=== PATIENT | female | born 1990 | race Caucasian/White ===

== ENCOUNTER 2020-01-10 02:36 | Emergency (ER) | payer MEDICAID, SELFPAY ==
--- NOTE | ~2020-01-10 | XR_ITS ---
EXAMINATION: XR chest 2V DATE: 01/10/2020 03:30 INDICATION: Left chest pain. TECHNIQUE: Frontal and lateral views of the chest were obtained. COMPARISON: Chest single view 04/24/2019, chest CT 01/10/2020 FINDINGS: The chest demonstrates clear lungs without pneumonia, pleural effusion, or pneumothorax. Th e heart size is normal. IMPRESSION: 1. No acute cardiopulmonary disease. Reviewed, dictated and finalized at location A.
--- NOTE | ~2020-01-10 | CT_ITS ---
EXAMINATION: CTA chest PE protocol DATE: 01/10/2020 04:46 INDICATION: Chest pain. TECHNIQUE: Computed tomography angiography (CTA) of the chest was performed with 100 mL Omnipaque-350 intravenous contrast timed to evaluate the pulmonary arteries. Coronal maximum intensity projection 3D-reconstructions were created by the technologist. Automated exposure control and iterative reconst ruction technique were employed. The dose-length product was 313.62 mGy-cm. COMPARISON: None. FINDINGS: There is mild atelectasis bilaterally. No pleural effusion. The heart size is normal. No pe ricardial effusion. There is no pulmonary embolus. There is mild thoracic spondylosis. IMPRESSION: 1. No pulmonary embolus. Sensitivity is moderately decreased by motion artifact. Reviewed, dictated and finalized at location A. IMPRESSION: 1. No pulmonary embolus. Sensitivity is moderately decreased by motion artifact .
--- NOTE | 2020-01-10 02:44 | ED.GENADULT ---
HPI - General Adult General Chief complaint: Unspecified Stated complaint: back pain Time Seen by Provider: 01/10/20 02:43 History of Present Illness HPI narrative: Pt c/o left lateral chest wall, rib pain, started 3 hours waitstaff captain. Pt states her pain is worse with palpation, deep breaths and movement. Denies any injury. Denies sob. Denies fever. Related Data Home Medications Medication Instructions Recorded Confirmed PNV cmb#95-ferrous fumarate-FA 1 tablet PO DAILY 01/10/20 [] Allergies Allergy/AdvReac Type Severity Reaction Status Date / Time No Known Allergies Allergy Unknown Verified 04/24/19 17:32 Review of Systems Review of Systems: All systems reviewed & are unremarkable except as noted in HPI and below Constitutional: Constitutional: Denies body ache(s), Denies chills, Denies excessive sweating, Denies fatigue, Denies fever(s), Denies headache(s), Denies lethargy, Denies malaise, Denies weakness and Denies weight loss Eyes: Eyes: Denies blurry vision, Denies change in vision and Denies loss of vision ENT: Denies dizziness, Denies ear discharge, Denies headache(s), Denies lip swelling, Denies epistaxis, Denies nasal congestion, Denies neck pain, Denies throat swelling and Denies tongue swelling Cardiovascular: Cardiovascular: Denies chest pain, Denies chest pain at rest, Denies chest pain with activity, Denies diaphoresis, Denies rapid heart rate, Denies edema, Denies irregular heart rhythm, Denies lightheadedness, Denies palpitations, Denies dyspnea and Denies dyspnea on exertion Respiratory: Respiratory: Denies chest congestion, Denies cough, Denies hemoptysis, Denies dyspnea and Denies dyspnea on exertion Gastrointestinal: Gastrointestinal: Denies abdominal pain, Denies melena, Denies hematochezia, Denies diarrhea, Denies nausea, Denies vomiting and Denies hematemesis Musculoskeletal: Musculoskeletal: Denies abnormal gait, Denies deformity, Denies joint swelling, Denies limited range of motion, Denies neck pain and Denies numbness Neurologic: Denies Abnormal speech present, Denies abnormal gait, Denies confusion, Denies dizziness, Denies headache(s), Denies focal weakness, Denies loss of vision, Denies numbness, Denies Other visual disturbances, Denies Sensory deficit (Neuro) and Denies weakness Psychiatric: Psychiatric: Denies confusion, Denies depression, Denies auditory hallucinations, Denies homicidal ideation and Denies suicidal ideation Endocrine: Endocrine: Denies cold intolerance, Denies excessive sweating, Denies fatigue, Denies heat intolerance and Denies palpitations Hematologic/Lymphatic: Hematologic/Lymphatic: Denies easy bleeding and Denies easy bruising Allergic/Immunologic: Allergic/Immunologic: Denies lip swelling, Denies throat swelling and Denies tongue swelling [facility] Social History Social History (Updated 04/24/19 @ 18:01 by Salvador Ramires) Smoking status: Current every day smoker Gender identity (if verbalized by the patient): Female Exam Const: General: cooperative, healthy appearing, comfortable, no acute distress, well developed, alert and awake; No confusion Orientation/consciousness: oriented to person, oriented to place, oriented to time, patient oriented x3 and No confusion Limitations: no limitations HENMT: Head: normal to inspection, normocephalic and atraumatic Ears: hearing grossly normal bilaterally, TM normal on the right and TM normal on the left General nose exam: Normal external nose present, Normal nares present and No nasal discharge present Face and sinus: normal facial exam Mouth: Yes Normal oral and palatal mucosa present, Yes lip normal, Yes tongue normal and Yes oropharynx normal Throat: posterior oropharynx normal, tonsils normal and uvula midline Eyes: General: appearance normal, both eyes and all related structures Pupils: Equal, round and reactive pupils present EOM: EOMs intact bilaterally Neck: Neck: normal visual inspection, full ROM, no l
[2020-01-10 02:45] VITALS: BP 124/64; PULSE 108; RESP 20; TEMP 36.8; O2SAT 98
--- NOTE | 2020-01-10 02:54 | ECG_ITS ---
Measurements Intervals [place] Rate: 101 P: 54 LA: 151 QRS: 21 QRSD: 85 T: 12 QT: 341 QTc: 444 Interpretive Statements SINUS TACHYCARDIA POSSIBLE LEFT ATRIAL ENLARGEMENT BORDERLINE ST ABNORMALITY- ANT/INF LEADS BORDERLINE ECG Electronically Signed On 01-10-2020 6:43:51 CDT by Nabor Hinojosa D.O.
[2020-01-10 02:55] VITALS: RESP 20; O2SAT 98
--- NOTE | 2020-01-10 03:12 | PC.NURSE ---
PT REQUESTING ULTRASOUND OF HER BABY AT THIS TIME; EDP MADE AWARE.
[2020-01-10 03:20] LABS: Basophils Absolute Auto 0.1 K/mm3 (0.0-0.1); Basophils Percent Auto 0.4 % (0.2-1.2); Eosinophils Absolute Auto 0.2 K/mm3 (0-0.3); Eosinophils Percent Auto 1.2 % (0-4.4); Hematocrit 29.3 % (37.0-47.0); Hemoglobin 10.3 g/dL (12.0-15.0); Immature Granulocyte Absolute 0.12 K/mm3 (0.00-0.031); Immature Granulocyte Percent A 0.9 % (0-0.5); Lymphocytes Absolute Auto 3.22 K/mm3 (0.9-3.2); Lymphocytes Percent Auto 24.8 % (18.3-44.2); Mean Corpuscular HGB Conc 35.2 g/dl (32-36); Mean Corpuscular Hemoglobin 32.2 pg (26-34); Mean Corpuscular Volume 91.6 fl (80-100); Mean Platelet Volume 10.6 fl (7.4-10.4); Monocytes Absolute Auto 0.8 K/mm3 (0.1-0.6); Monocytes Percent Auto 6.3 % (2.6-8.5); Neutrophils Absolute Auto 8.6 K/mm3 (1.3-6.7); Neutrophils Percent Auto 66.4 % (45.5-73.1); Platelet Count Result 264 k/mm3 (150-375); Red Cell Distribution Width 11.8 % (11.5-14.5)
[2020-01-10 03:25] LABS: Alanine Aminotransferase 11 U/L (4-35); Albumin Level 3.3 g/dL (3.5-5.1); Alkaline Phosphatase 64 U/L (38-126); Anion Gap 4 mmol/L (8-16); Aspartate Amino Transferase 20 U/L (14-36); Bilirubin,Total 0.4 mg/dL (0.2-1.3); Blood Urea Nitrogen 5 mg/dL (7-17); Calcium 8.8 mg/dL (8.4-10.2); Carbon Dioxide 21 mmol/L (22-30); Chloride 107 mmol/L (98-107); Estimated CRCL calculation 138 ml/min; Estimated Glomerular Filt Rate > 60; Glucose 151 mg/dL (65-105); Potassium 3.5 mmol/L (3.4-5.0); Sodium 132 mmol/L (137-145)
[2020-01-10 03:36] LABS: D Dimer 0.71 ug/mL (<0.48)
[2020-01-10] MEDS: SODIUM CHLORIDE 0.9% IV 1,000 ML 999 ML IV CONT (04:14)
[2020-01-10 05:52] VITALS: BP 103/62; PULSE 93; RESP 18; O2SAT 98
== END 2020-01-10 06:05 | disposition home or self-care (01) ==
PROVIDERS: Emergency Provider Emergency Medicine; PCP Obstetrics & Gynecology
DX: R09.1 Pleurisy (principal); R00.0 Tachycardia, unspecified; F17.210 Nicotine dependence, cigarettes, uncomplicated
CPT/HCPCS: 36415; 71046; 71275; 80053; 85025; 85380; 93005; 96360; 99284; J7030; Q9967

== ENCOUNTER 2020-01-10 13:11 | Observation (INO) | payer MEDICAID, SELFPAY ==
[2020-01-10] VITALS (20 sets, daily range): BP systolic 75–111; BP diastolic 46–74; PULSE 91–114; TEMP 36.6–36.9; O2SAT 97–100; BMI 24.3
--- NOTE | 2020-01-10 14:23 | P.HP_ITS ---
H&P: HPI History of Present Illness Date/Time: 01/10/20 14:23 pt is a 29 y.o. at 30 weeks gestation who pre sents with continued back/rib pain, all upper quadrant, feels like a burning pain. Flexeril and tylenol were not helpful and did not decrease the pain, pt currently having difficulty sitting up for exam. Pt was seen yesterday in the ED and CT and Xray of chest were negative, labs stable Chief complaint: Left side pain Narrative: Qing Mattson is a 29 year old female Review of Systems Review of Systems: All systems reviewed & are unremarkable except as noted in HPI and below PMFSH Social History Social History (Updated 04/24/19 @ 18:01 by Salvador Ramires) Smoking status: Current every day smoker Gender identity (if verbalized by the patient): Female Meds Home Medications and Allergies Home Medications Medication Instructions Recorded Confirmed Type PNV cmb#95-ferrous fumarate-FA 1 tablet PO DAILY 01/10/20 History [] Allergies Allergy/AdvReac Type Severity Reaction Status Date / Time No Known Allergies Allergy Unknown Verified 04/24/19 17:32 Vital Signs Vital Signs - 24 hr 01/10/20 13:27 01/10/20 13:30 01/10/20 13:45 Pulse Rate 107 H 114 H 109 H Blood Pressure 94/57 L 107/50 L 75/51 L Pulse Oximetry 01/10/20 13:49 01/10/20 13:50 01/10/20 13:54 Pulse Rate 102 H Blood Pressure 111/58 L Pulse Oximetry 98 99 01/10/20 13:59 01/10/20 14:00 01/10/20 14:04 Pulse Rate 105 H Blood Pressure 100/58 L Pulse Oximetry 98 98 01/10/20 14:09 01/10/20 14:14 01/10/20 14:19 Pulse Rate 106 H Blood Pressure 106/74 Pulse Oximetry 97 98 99 Exam Const: General: uncomfortable Eyes: General: appearance normal, both eyes and all related structures Resp: Effort & Inspection: normal respiratory effort GI: GI Palp: Yes Soft to palpation Skin: General skin exam: normal color Extrem: Other: pain in between ribs mid to upper back with examination, no mass or injury noted Psych: Mental Status: mental status grossly normal Assessment and Plan Additional Plan 1. suspect muscular pain rx xanax 0.5mg dose Discussed plan of care with Valerie Abdullahi and pt all questions answered
[2020-01-10] MEDS: ALPRAZolam (*CRX) 0.5 MG TABLET PO (14:41)
--- NOTE | 2020-01-10 15:27 | OBADM ---
This patient, Qing Mattson, admitted to the OB room OB Post 117 for observation. Patient oriented to hospital policies and general routines including ID bracelet, bed and alarms, visiting hours, pain management, procedures, bathroom and other care routines, personal items, smoking policy, room service/diet, and visiting hours. Patient are encouraged to report perceived risks to care and to ask questions if they do not understand what they are told or what they should do.
--- NOTE | 2020-01-11 01:18 | PC.NURSE ---
2130 Patient states that at rest pain is gone. States pain is 2-3 with movement. States K pad has helped pain improved.
== END 2020-01-10 22:00 | disposition home or self-care (01) ==
PROVIDERS: Admitting Provider Obstetrics & Gynecology; PCP Obstetrics & Gynecology; Visit Provider Obstetrics & Gynecology
DX: O26.93 Pregnancy related conditions, unspecified, third trimester (principal); R10.12 Left upper quadrant pain; R10.11 Right upper quadrant pain; M54.9 Dorsalgia, unspecified; O99.333 Smoking (tobacco) complicating pregnancy, third trimester; Z3A.30 30 weeks gestation of pregnancy
CPT/HCPCS: 71046; 71275; 80053; 85025; 85380; 93005; 96360; 99284; A9270; G0378; G0379; J7030; Q9967

== ENCOUNTER 2020-02-10 23:20 | Observation (INO) | payer OTHER, SELFPAY ==
[2020-02-10 23:40] VITALS: BP 108/60; PULSE 107
[2020-02-11 00:28] LABS: Add Urine Microscopic? NO; Appearance Urine Clear (Clear); Bilirubin Urine Negative (Negative); Blood Urine Negative (Negative); Color Urine Straw (Yellow); Glucose Urine UA Negative (Negative); Ketones Urine Negative (Negative); Leukocyte Esterase Ur Negative LEU/UL (Negative); Nitrate Urine Negative (Negative); Protein Urine Negative (Negative); Specific Grav Ur 1.008 (1.001-1.035); Urobilinogen Urine Negative mg/dL (<2.0)
--- NOTE | 2020-03-08 08:28 | P.PNOB_ITS ---
OB - Triage/Final Diagnosis Evaluation Laboratory results: Laboratory Tests 02/11/20 00:21 Urine Color Straw Urine Appearance Clear Urine pH 6.0 Ur Specific [place] 1.008 Urine Protein Negative Urine Glucose (UA) Negative Urine Ketones Negative Ur Blood (Man) Negative Urine Nitrate Negative Urine Bilirubin Negative Urine Urobilinogen Negative Leukocyte Esterase Rfl Negative Final Diagnosis (1) False labor: Code(s): O47.9 - False labor, unspecified Status: Acute
== END 2020-02-11 00:45 | disposition home or self-care (01) ==
PROVIDERS: Admitting Provider Obstetrics & Gynecology; Visit Provider Obstetrics & Gynecology
DX: O47.9 False labor, unspecified (principal); Z3A.00 Weeks of gestation of pregnancy not specified
CPT/HCPCS: 81003; 84112; G0378; G0379

== ENCOUNTER 2020-03-07 04:25 | Inpatient (IN) | payer OTHER, SELFPAY ==
[2020-03-07] VITALS (24 sets, daily range): BP systolic 100–137; BP diastolic 47–72; PULSE 70–118; RESP 16–18; TEMP 36.6–36.8; O2SAT 95–99; BMI 25.7
--- NOTE | ~2020-03-07 | US_ITS ---
EXAMINATION: US OB limited w BPP DATE: 03/07/2020 07:36 INDICATION: Variable decelerations. Third trimester. TECHNIQUE: Real-time pelvic ultrasound was performed. COMPARISON: None. FINDINGS: There is a single living fetus in vertex presentation. The placenta is anterior. heart rate is 163 beats per minute (bpm). The amniotic fluid index is 10.6 cm, which is normal. Biophysical profile performed by the technologist: breathing (30 sec sustained breathing in 30 minutes): 2 out of 2 movement (3 gross body movements in 30 minutes): 2 out of 2 tone (one episode of rvbyazg-[id number]-kaavyma limb movement): 2 out of 2 Amniotic fluid pocket (2 cm): 2 out of 2 Total score: 8 out of 8 IMPRESSION: 1. Single living fetus in vertex presentation. 2. Biophysical profile 8 out of 8. Reviewed, dictated and finalized at location A. AGENT
--- NOTE | 2020-03-07 04:49 | OBADM ---
This patient, Qing Mattson, admitted to the OB room Labor/Delivery/Recovery 105 for observation. Patient/family oriented to hospital policies and general routines including ID bracelet, bed and alarms, visiting hours, pain management, procedures, bathroom and other care routines, personal items, smoking policy, room service/diet, and visiting hours. Patient/Family are encouraged to report perceived risks to care and to ask questions if they do not understand what they are told or what they should do.
[2020-03-07] MEDS: OXYTOCIN 30 UNITS/NS 500 ML 30 UNITS/500 ML BAG IV CONT (11:10)
[2020-03-07] MEDS: LACTATED RINGERS 1,000 ML 125 ML IV CONT (11:11)
[2020-03-07 11:20] LABS: Basophils Absolute Auto 0.1 K/mm3 (0.0-0.1); Basophils Percent Auto 0.4 % (0.2-1.2); Eosinophils Absolute Auto 0.1 K/mm3 (0-0.3); Hematocrit 35.1 % (37.0-47.0); Hemoglobin 11.6 g/dL (12.0-15.0); Immature Granulocyte Absolute 0.17 K/mm3 (0.00-0.031); Immature Granulocyte Percent A 1.3 % (0-0.5); Lymphocytes Absolute Auto 3.32 K/mm3 (0.9-3.2); Lymphocytes Percent Auto 24.4 % (18.3-44.2); Mean Corpuscular Hemoglobin 30.1 pg (26-34); Mean Corpuscular Volume 90.9 fl (80-100); Monocytes Absolute Auto 0.9 K/mm3 (0.1-0.6); Monocytes Percent Auto 6.3 % (2.6-8.5); Neutrophils Absolute Auto 9.1 K/mm3 (1.3-6.7); Neutrophils Percent Auto 66.6 % (45.5-73.1); Platelet Count Result 366 k/mm3 (150-375); Red Blood Count 3.86 M/mm3 (4.2-5.4); Red Cell Distribution Width 13.9 % (11.5-14.5); White Blood Count 13.6 K/mm3 (4.5-10.0)
--- NOTE | 2020-03-07 11:22 | LDADM ---
This patient, Qing Mattson, was admitted to Labor/Delivery/Recovery 105 on 03/07/20 at 09:30. Plans for labor, pain management and were discussed with patient. Patient/family oriented to hospital policies and general routines including ID bracelet, bed and alarms, visiting hours, pain management, procedures, bathroom and other care routines, personal items, smoking policy, room service/diet and guest tray routines, infant security routines, and visiting hours. Patient/Family are encouraged to report perceived risks to care and to ask questions if they do not understand what they are told or what they should do. See OBIX for further documentation.
--- NOTE | 2020-03-07 13:25 | WPDOBADMIT ---
Obstetrics - Admit Note Admission Note: Pt staying for augmentation of labor d/t fhr decelerations. record reviewed. No pertinent additions to the history and/or any subsequent changes in the physical findings that are not consistent with the expected course of the were found. Additions to the history and/or subsequent changes in the physical findings follow. None.
--- NOTE | 2020-03-07 13:27 | PM.OBPRVD ---
OB - Delivery Note Procedure Delivery date: 03/07/20 Intrapartal events: None Delivery augmentation: pitocin Delivery monitor: external FHT and external uterine Route of delivery: Episiotomy description: None Laceration Description: None Estimated blood loss (mL): 187 Anesthesia type: None Baby Date of : 03/07/20 Time of : 13:11 Weeks of gestation at delivery: 38 Infant gender: Female position: Right Occiput Anterior cord vessel description: Delayed Cord Clamping Narrative: Cord gasses collected and handed off to staff.
[2020-03-07] MEDS: HYDROcodone/acetaminophen (*CRX) 5-325 MG TABLET 1 TAB PO ×2 (14:10→18:02)
[2020-03-07] MEDS: WITCH HAZEL 40 PADS 1 PAD TOPICAL (14:10)
[2020-03-07] MEDS: BENZOCAINE 20% AER SPR (*SP) 56 GM CAN 1 SPRAY TOPICAL (14:10)
[2020-03-07] MEDS: IBUPROFEN 600 MG TABLET PO (18:01)
[2020-03-07] MEDS: DOCUSATE SODIUM 100 MG CAPSULE PO (18:01)
--- NOTE | 2020-03-07 18:57 | PC.NURSE ---
1555 Pt admitted to room 278 per wheelchair from labor and delivery after spontaneous vaginal delivery of viable female infant at 1311 today with Xiomara ELIZALDE for Dr. Padilla. Mother is a and is choosing to bottle feed infant. FOB involved. Pt oriented to room, staffing and procedures; Admission folder reviewed. Pt's VSS and assessment WNL.
[2020-03-08 06:10] LABS: Hematocrit 32.5 % (37.0-47.0); Hemoglobin 10.7 g/dL (12.0-15.0)
--- NOTE | 2020-03-08 07:58 | PM.OBPNVD ---
OB - PN: Subj Subjective Date/time seen: 03/08/20 07:58 Patient comments: no complaints and pain well controlled feeding status: breast and bottle feeding OB - PN: Obj Data Labs CBC & Chem 7: 03/08/20 04:50 Labs: Laboratory Results - last 24 hr 03/07/20 03/07/20 03/08/20 11:15 11:15 04:50 WBC 13.6 H RBC 3.86 L Hgb 11.6 L 10.7 L Hct 35.1 L 32.5 L MCV 90.9 MCH 30.1 MCHC 33.0 RDW 13.9 Plt Count 366 MPV 10.0 Immature Gran % (Auto) 1.3 H Neut % (Auto) 66.6 Lymph % (Auto) 24.4 [place] % (Auto) 6.3 Eos % (Auto) 1.0 Baso % (Auto) 0.4 Lymph # (Auto) 3.32 H [place] # (Auto) 0.9 H Eos # (Auto) 0.1 Baso # (Auto) 0.1 Abs Immat Gran (auto) 0.17 H Absolute Neuts (auto) 9.1 H Absolute Nucleated RBC 0.0 Nucleated RBC % 0.0 Blood Type O Positive Antibody Screen Negative OB - PN A/P Plan day: 1 Plan: routine care and discharge home Time Spent With Patient Time: Total time spent is greater than 50% in coordination of care (as documented) at patient's floor/unit and/or counseling patient: Exam Const: General: cooperative Limitations: no limitations
--- NOTE | 2020-03-08 07:59 | PM.OBDSVD ---
DS: Admitting Diagnosis Admitting Diagnosis Admitting Diagnosis: Leaking, contractions OB - DS: Summary OB Procedures : None OB Procedures Intrapartum: Spontaneous Vag Delivery OB Procedures: : None Time Spent with Patient Time attestation: Total time spent providing and/or coordinating discharge services: DS: Data Data Completed and Pending Labs on day of discharge: Labs from last 24 hours 03/08/20 03/07/20 03/07/20 04:50 11:15 11:15 WBC RBC Hgb 10.7 L Hct 32.5 L MCV MCH MCHC RDW Plt Count MPV Immature Gran % (Auto) Neut % (Auto) Lymph % (Auto) [place] % (Auto) Eos % (Auto) Baso % (Auto) Lymph # (Auto) [place] # (Auto) Eos # (Auto) Baso # (Auto) Abs Immat Gran (auto) Absolute Neuts (auto) Absolute Nucleated RBC Nucleated RBC % RPR Pending Blood Type O Positive Antibody Screen Negative 03/07/20 11:15 WBC 13.6 H RBC 3.86 L Hgb 11.6 L Hct 35.1 L MCV 90.9 MCH 30.1 MCHC 33.0 RDW 13.9 Plt Count 366 MPV 10.0 Immature Gran % (Auto) 1.3 H Neut % (Auto) 66.6 Lymph % (Auto) 24.4 [place] % (Auto) 6.3 Eos % (Auto) 1.0 Baso % (Auto) 0.4 Lymph # (Auto) 3.32 H [place] # (Auto) 0.9 H Eos # (Auto) 0.1 Baso # (Auto) 0.1 Abs Immat Gran (auto) 0.17 H Absolute Neuts (auto) 9.1 H Absolute Nucleated RBC 0.0 Nucleated RBC % 0.0 RPR Blood Type Antibody Screen Discharge Plan Discharge Attending physician on discharge: Pato Padilla Discharging Clinician: Laura Goldstein Patient Disposition: Home, Self-Care Activity: pelvic rest Diet: regular Patient Instructions: Antibiotic Form Stand Alone Forms: General Discharge Information Follow-up/Referrals: Alia Eubanks CNM [Certified Nurse Mobile Battery Technician] - 4 Weeks Discharge Medications: Continued PNV cmb#95-ferrous fumarate-FA [] 28 mg iron- 800 mcg Tablet 1 tablet PO DAILY RF: 0 Date of admission: 03/07/20 09:30 Primary Care Provider: PHYSICIAN,DYE RANGE TENDER Admitting Provider: Pato Padilla Attending physician on admission: Pato Padilla Condition: Stable
[2020-03-08 08:18] LABS: Rapid Plasma Reagin Non-Reactive (NonReactive)
[2020-03-08 08:55] VITALS: BP 94/55; PULSE 92; RESP 16; TEMP 36.8; O2SAT 100
[2020-03-08] MEDS: HYDROcodone/acetaminophen (*CRX) 5-325 MG TABLET 1 TAB PO (09:17)
[2020-03-08] MEDS: IBUPROFEN 600 MG TABLET PO (09:17)
--- NOTE | 2020-03-08 12:00 | PC.NURSE ---
Patient received instructions on viewing the discharge video Mother & Baby Care, The First Two Weeks . Patient was given the opportunity and encouraged to ask questions. Patient verbalized understanding of information shared and has been given the mother/baby guide for home reference.
[2020-03-11 10:16] VITALS: BP 103/63; PULSE 89; RESP 14; TEMP 37.1; O2SAT 99
== END 2020-03-08 15:03 | disposition home or self-care (01) | DRG 560 ==
LOC: ANHLDR 11:09 → ANHOB2 16:09
PROVIDERS: Advanced Practice Midwife; Admitting Provider Obstetrics & Gynecology; Visit Provider Obstetrics & Gynecology
DX: O43.123 Velamentous insertion of umbilical cord, third trimester (principal); O69.81X0 Labor and delivery complicated by cord around neck, without compression, not applicable or unspecified; Z3A.38 38 weeks gestation of pregnancy; Z37.0 Single live birth
CPT/HCPCS: 36415; 76815; 76819; 85014; 85018; 85025; 86592; 86850; 86900; 86901; A9270; G0378; G0379; J2590; J2795; J7120

== ENCOUNTER 2021-03-26 09:35 | Emergency (ER) | payer OTHER, SELFPAY ==
--- NOTE | ~2021-03-26 | CT_ITS ---
EXAMINATION: CT brain wo con INDICATION: Headache COMPARISON: 04/24/2019 TECHNIQUE: Standard unenhanced head CT. The dose-length product (DLP) was 605.33 mGy-cm. The mA was a djusted according to patient size. Iterative reconstruction technique was employed. FINDINGS: There is no intracranial hemorrhage, acute infarction, or abnormal mass lesion. The ventric les are normal. There is no abnormal mass effect or midline shift. The jorge-white matter differentiat ion is normal. The basal cisterns are patent. The orbits are normal. The paranasal sinuses, mastoids and calvarium are normal. IMPRESSION: 1. No acute intracranial abnormality. Reviewed, dictated and finalized at location A. URCE DEVELOPMENT DIRECTOR
[2021-03-26 10:11] VITALS: BP 113/94; PULSE 108; RESP 20; O2SAT 100
[2021-03-26 10:45] LABS: Basophils Percent Auto 0.4 % (0.2-1.2); Eosinophils Percent Auto 0.2 % (0-4.4); Hematocrit 35.2 % (37.0-47.0); Hemoglobin 11.5 g/dL (12.0-15.0); Immature Granulocyte Absolute 0.01 K/mm3 (0.00-0.031); Immature Granulocyte Percent A 0.2 % (0-0.5); Lymphocytes Absolute Auto 0.54 K/mm3 (0.9-3.2); Lymphocytes Percent Auto 9.8 % (18.3-44.2); Mean Corpuscular HGB Conc 32.7 g/dl (32-36); Mean Corpuscular Hemoglobin 26.9 pg (26-34); Mean Corpuscular Volume 82.4 fl (80-100); Mean Platelet Volume 11.8 fl (7.4-10.4); Monocytes Absolute Auto 0.5 K/mm3 (0.1-0.6); Monocytes Percent Auto 8.7 % (2.6-8.5); Neutrophils Absolute Auto 4.4 K/mm3 (1.3-6.7); Neutrophils Percent Auto 80.7 % (45.5-73.1); Platelet Count Result 185 k/mm3 (150-375); Red Blood Count 4.27 M/mm3 (4.2-5.4); Red Cell Distribution Width 14.5 % (11.5-14.5); White Blood Count 5.5 K/mm3 (4.5-10.0)
[2021-03-26] MEDS: ACETAMINOPHEN 500 MG TABLET 1000 MG PO (10:50)
[2021-03-26] MEDS: SODIUM CHLORIDE 0.9% IV 1,000 ML 999 ML IV CONT (10:50)
[2021-03-26] MEDS: PROCHLORPERAZINE EDISYLATE 10 MG/2 ML VIAL IV PUSH (10:52)
[2021-03-26 10:57] LABS: Alanine Aminotransferase 15 U/L (4-35); Albumin Level 4.7 g/dL (3.5-5.1); Alkaline Phosphatase 51 U/L (38-126); Anion Gap 10 mmol/L (8-16); Aspartate Amino Transferase 27 U/L (14-36); Bilirubin,Total 0.4 mg/dL (0.2-1.3); Blood Urea Nitrogen 12 mg/dL (7-17); Calcium 9.3 mg/dL (8.4-10.2); Carbon Dioxide 21 mmol/L (22-30); Chloride 101 mmol/L (98-107); Estimated CRCL calculation 96 ml/min; Estimated Glomerular Filt Rate > 60; Glucose 116 mg/dL (65-110); Sodium 132 mmol/L (137-145)
[2021-03-26 11:15] LABS: Barbiturate Screen Urine Negative (Negative); Benzodiazepines Screen Urine Negative (Negative)
[2021-03-26 11:21] LABS: Amphetamine Screen Urine Negative (Negative); Cannabinoid Screen Urine Negative (Negative); Cocaine Screen Urine Negative (Negative); Methadone Screen Urine Negative (Negative); Opiate Screen Urine Negative (Negative); Phencyclidine Screen Urine Negative (Negative)
[2021-03-26 11:32] LABS: Add Urine Microscopic? YES; Appearance Urine Cloudy (Clear); Bacteria Urine Trace /hpf; Bilirubin Urine Negative (Negative); Blood Urine Negative (Negative); Color Urine Yellow (Yellow); Glucose Urine UA Negative (Negative); Ketones Urine Negative (Negative); Leukocyte Esterase Ur Negative LEU/UL (Negative); Mucus Urine Heavy /lpf; Nitrate Urine Positive (Negative); Protein Urine Negative (Negative); Specific Grav Ur 1.023 (1.001-1.035); Squamous Epithelial Cell Urine Many /hpf (Few); Urobilinogen Urine Negative mg/dL (<2.0)
--- NOTE | 2021-03-26 12:03 | ED.HA ---
HPI - Headache General Chief Complaint: Headache Stated Complaint: somethings boiling in my head Time Seen by Provider: 03/26/21 09:55 Source: patient History of Present Illness HPI Narrative: Patient presents with multiple complaints. Her primary concern is her head she feels like her head is boiling and she is unsure how to describe it further. She reports her symptoms are worse with bright lights and loud noises. She also reports left-sided kidney pain that radiates to her right abdomen she also reports lower extremity pain pain her kidney pain and being pain has been present for years her head boiling has been present for the past couple days. She has not attempted to take any medications as she reports she is too busy at work Related Data Home Medications Medication Instructions Recorded Confirmed No Home Medications 03/26/21 03/26/21 Allergies Allergy/AdvReac Type Severity Reaction Status Date / Time No Known Allergies Allergy Unknown Verified 03/26/21 10:14 Review of Systems Review of Systems: CONSTITUTIONAL: Denies fever, chills, or sweats. EYES: Denies visual changes, redness, or discharge. ENT: Denies rhinorrhea, congestion, sore throat, or otalgia. CARDIOVASCULAR: Denies chest pain, palpitations, or edema. RESPIRATORY: Denies cough or dyspnea. GASTROINTESTINAL: Denies vomiting, or diarrhea. GENITOURINARY: Denies dysuria or hematuria. SKIN: Denies rash or itching. MUSCULOSKELETAL: Denies back pain, joint pain, or myalgia. NEUROLOGIC: Denies numbness, dizziness, or weakness. PSYCHIATRIC: Denies anxiety or depression. All systems reviewed & are unremarkable except as noted in HPI and below PMFSH Past Medical History Medical History Endometriosis Surgical History Surgical History No significant past surgical history Social History Social History Smoking status: Current some day smoker Substance use: never Gender identity (if verbalized by the patient): Female Sexual Orientation (if Verbalized by the Patient): Straight or Heterosexual Spiritual care concerns: No Exam Narrative: GENERAL: Well-appearing, well-nourished, and in no acute distress. HEAD: Normocephalic, atraumatic. EYES: PERRLA and EOMI. ENT: Nares clear, no rhinorrhea or epistaxis. Mucous membranes moist. NECK: Supple. No masses. No JVD ABDOMEN: Soft, nontender, nondistended, normal active bowel sounds. EXTREMITIES: Normal range of motion. No edema. SKIN: Warm, dry, no rash. NEURO: Cranial nerves II through XII are intact patient has 5 out of 5 strength in all extremities sensation intact to light touch in all extremities alert and oriented x3. PSYCH: Normal mood and affect. Course Reevaluation(s) Reevaluation #1: Patient reports feeling much improved results and plan reviewed with patient. Patient comfortable with outpatient plan. Date: 03/26/21 Time: 12:03 Vital Signs Vital signs: Vital Signs Pulse Rate 108 H 03/26/21 10:11 Respiratory Rate 20 03/26/21 10:11 Blood Pressure 113/94 H 03/26/21 10:11 Pulse Oximetry 100 03/26/21 10:11 Temperature 36.7 C 03/26/21 12:28 Pulse Rate 90 03/26/21 12:28 Respiratory Rate 18 03/26/21 12:28 Blood Pressure 118/67 03/26/21 12:28 Pulse Oximetry 98 03/26/21 12:28 MDM - Headache MDM Narrative Medical decision making narrative: H&P as above, vs with mild tachycardia, pt looks clinically well, exam without focal neurological deficits, labs clinically unremarkable, img clinically unremarkable, additional labs/img considered, symptomatic relief available as needed, on reevaluation pt continues to looks clinically well. Suspect migraine, dns intracranial hemorrhage, mass, encephalitis, severe sepsis. plan to tx/monitor as op w/ pcm f/u findings/plan discussed with pt, pt agree/comfortable wi
--- NOTE | 2021-03-26 12:25 | PC.NURSE ---
Called lab to add on bedside test.
[2021-03-26 12:28] VITALS: BP 118/67; PULSE 90; RESP 18; TEMP 36.7; O2SAT 98
== END 2021-03-26 12:42 | disposition home or self-care (01) ==
PROVIDERS: Emergency Provider Emergency Medicine
DX: G43.909 Migraine, unspecified, not intractable, without status migrainosus (principal)
CPT/HCPCS: 36415; 70450; 80053; 80307; 81001; 85025; 96361; 96374; 99284; A9270; J0780; J7030

== ENCOUNTER 2021-07-09 12:58 | Emergency (ER) | payer OTHER, SELFPAY ==
--- NOTE | ~2021-07-09 | XR_ITS ---
EXAMINATION: XR chest 1V portable INDICATION: Chest pain TECHNIQUE: Portable AP chest at 1351 hours COMPARISON: 01/10/2020 FINDINGS: The lungs are free of acute opacities. There is no pleural effusion or pneumothorax. The ca rdiomediastinal silhouette is normal. IMPRESSION: 1. No acute cardiopulmonary abnormality. Reviewed, dictated and finalized at location B.
[2021-07-09 13:17] VITALS: BP 121/73; PULSE 97; RESP 14; TEMP 36.4; O2SAT 99
[2021-07-09 13:21] VITALS: O2SAT 100
--- NOTE | 2021-07-09 13:41 | ED.CHESTPAIN ---
HPI - Chest Pain General Chief Complaint: Chest Pain Stated Complaint: chest pain/back pain/left arm pain Time Seen by Provider: 07/09/21 13:33 Source: patient Mode of arrival: ambulatory Limitations: no limitations History of Present Illness HPI narrative: Patient is 31 years old white female presents with intermittent left chest pain radiating left upper extremity got worse over the last few days. Intermittent shortness of breath. Pain left upper extremity in the form of numbness and tingling. Patient reports a lot of stress lately. Patient denies taking medication at home, smoking, drinking or using drugs. Related Data Allergies Allergy/AdvReac Type Severity Reaction Status Date / Time No Known Allergies Allergy Unknown Verified 07/09/21 13:22 Review of Systems Review of Systems: CONSTITUTIONAL: Denies fever, chills, or sweats. EYES: Denies visual changes, redness, or discharge. ENT: Denies rhinorrhea, congestion, sore throat, or otalgia. CARDIOVASCULAR: Denies chest pain, palpitations, or edema. RESPIRATORY: Denies cough or dyspnea. GASTROINTESTINAL: Denies abdominal pain, nausea, vomiting, or diarrhea. GENITOURINARY: Denies dysuria or hematuria. SKIN: Denies rash or itching. MUSCULOSKELETAL: Denies back pain, joint pain, or myalgia. NEUROLOGIC: Denies headache, numbness, or weakness. PSYCHIATRIC: Denies anxiety or depression. [facility] Past Medical History Medical History Endometriosis Surgical History Surgical History No significant past surgical history Social History Social History Smoking status: Current some day smoker Substance use: never Gender identity (if verbalized by the patient): Female Sexual Orientation (if Verbalized by the Patient): Straight or Heterosexual Spiritual care concerns: No Exam Narrative: General appearance: Well-developed, well-nourished Skin: Normal color Head: Normocephalic, nontraumatic Eyes: Clear conjunctiva ENT: Oropharynx normal, ears normal, nose normal Neck: Supple, nontender Chest and respiratory: Airway patent, no respiratory distress, no accessory muscle use, mild diffuse tenderness chest wall anteriorly, left breast, no mass, no rash, no erythema Heart: Regular rate/rhythm Abdomen: Soft, nontender, no organomegaly, quiet bowel sounds Vascular: Normal peripheral pulses, normal capillary refill. 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 Patient does not have any comorbidities for coronary artery disease. Anxiety-like symptoms is my concern versus chest wall muscle pain Vital Signs Vital signs: Vital Signs Temperature 36.4 C 07/09/21 13:17 Pulse Rate 97 07/09/21 13:17 Respiratory Rate 14 07/09/21 13:17 Blood Pressure 121/73 07/09/21 13:17 Pulse Oximetry 99 07/09/21 13:17 Temperature 36.4 C 07/09/21 13:17 Pulse Rate 97 07/09/21 13:17 Respiratory Rate 14 07/09/21 13:17 Blood Pressure 121/73 07/09/21 13:17 Pulse Oximetry 100 07/09/21 13:21 MDM - Chest Pain Imaging Data Radiologist's impression: Impressions Chest X-Ray 07/09/21 13:57 IMPRESSION: 1. No acute cardiopulmonary abnormality. ECG Data EKG #1: Attestation: I personally reviewed and interpreted this ECG as follows: ECG com
--- NOTE | 2021-07-09 13:42 | ECG_ITS ---
Measurements Intervals [place] Rate: 94 P: 71 PA: 150 QRS: 15 QRSD: 89 T: 2 QT: 337 QTc: 421 Interpretive Statements SINUS RHYTHM POSSIBLE LEFT ATRIAL ENLARGEMENT [-0.1mV P WAVE IN V1/V2] NONSPECIFIC T-WAVE ABNORMALITY ABNORMAL ECG COMPARED TO ECG 01/10/2020 03:02:21 SINUS RHYTHM NOW PRESENT T-WAVE ABNORMALITY NOW PRESENT Electronically Signed On 07-09-2021 14:21:20 CDT by Eduardo Delgado M.D.
[2021-07-09 14:14] LABS: Basophils Absolute Auto 0.1 K/mm3 (0.0-0.1); Basophils Percent Auto 0.8 % (0.2-1.2); Eosinophils Absolute Auto 0.1 K/mm3 (0-0.3); Eosinophils Percent Auto 0.8 % (0-4.4); Hematocrit 33.1 % (37.0-47.0); Hemoglobin 10.5 g/dL (12.0-15.0); Immature Granulocyte Absolute 0.02 K/mm3 (0.00-0.031); Immature Granulocyte Percent A 0.3 % (0-0.5); Lymphocytes Absolute Auto 1.39 K/mm3 (0.9-3.2); Lymphocytes Percent Auto 22.1 % (18.3-44.2); Mean Corpuscular HGB Conc 31.7 g/dl (32-36); Mean Corpuscular Volume 81.9 fl (80-100); Mean Platelet Volume 11.1 fl (7.4-10.4); Monocytes Absolute Auto 0.4 K/mm3 (0.1-0.6); Neutrophils Absolute Auto 4.3 K/mm3 (1.3-6.7); Platelet Count Result 260 k/mm3 (150-375); Red Blood Count 4.04 M/mm3 (4.2-5.4); White Blood Count 6.3 K/mm3 (4.5-10.0)
[2021-07-09 14:26] LABS: D Dimer 0.29 ug/mL (<0.48)
[2021-07-09 14:27] LABS: Alanine Aminotransferase 13 U/L (4-35); Albumin Level 4.5 g/dL (3.5-5.1); Alkaline Phosphatase 42 U/L (38-126); Anion Gap 9 mmol/L (8-16); Aspartate Amino Transferase 26 U/L (14-36); Bilirubin,Total 0.9 mg/dL (0.2-1.3); Blood Urea Nitrogen 15 mg/dL (7-17); Calcium 8.8 mg/dL (8.4-10.2); Carbon Dioxide 23 mmol/L (22-30); Chloride 105 mmol/L (98-107); Estimated CRCL calculation 82 ml/min; Estimated Glomerular Filt Rate > 60; Glucose 83 mg/dL (65-110); Potassium 3.8 mmol/L (3.4-5.0); Sodium 137 mmol/L (137-145)
[2021-07-09 14:29] VITALS: BP 98/64; PULSE 81; RESP 14; O2SAT 99
[2021-07-09 14:39] LABS: Troponin I < 0.012 ng/mL (0.000-0.034)
[2021-07-09 15:06] VITALS: BP 104/65; PULSE 78; RESP 14; O2SAT 99
== END 2021-07-09 15:08 | disposition home or self-care (01) ==
PROVIDERS: Emergency Provider Emergency Medicine
DX: M94.0 Chondrocostal junction syndrome [Tietze] (principal); R94.31 Abnormal electrocardiogram [ECG] [EKG]
CPT/HCPCS: 36415; 71045; 80053; 84484; 85025; 85380; 93005; 99284

== ENCOUNTER 2021-07-17 22:55 | Emergency (ER) | payer OTHER, SELFPAY ==
--- NOTE | ~2021-07-17 | XR_ITS ---
EXAMINATION: XR lumbar spine 2-3V DATE: 07/18/2021 02:18 INDICATION: Low back pain radiating down the left leg TECHNIQUE: Anteroposterior and lateral views of the lumbar spine, and cone-down lateral view of the l umbosacral junction were obtained. COMPARISON: CT abdomen pelvis dated 11/02/2016 FINDINGS: Mild lumbar levocurvature. Sagittal alignment is normal. Partially lumbarized S1 segment. Vertebral b pedro pablo and disc heights are normal. Mild lumbar facet osteoarthritis. T-shaped IUD in expected position in the central pelvis. A few phleboliths in the pelvis. IMPRESSION: 1. Mild lumbar levocurvature with multilevel mild facet osteoarthritis. 2. IUD in expected position. Reviewed, dictated and finalized at location A.
[2021-07-17 22:57] VITALS: BP 107/61; PULSE 95; RESP 16; TEMP 36.4; O2SAT 100
[2021-07-18] VITALS (7 sets, daily range): BP systolic 98–108; BP diastolic 53–83; PULSE 66–86; RESP 15–23; O2SAT 93–100
--- NOTE | 2021-07-18 01:37 | ED.LOWEXIN ---
HPI - Extremity Injury (Lower) General Chief Complaint: Extremity Injury, Lower Stated Complaint: left leg pain Time Seen by Provider: 07/18/21 01:26 Source: patient Mode of arrival: ambulatory Limitations: no limitations History of Present Illness HPI Narrative: This is a 31-year-old female that presents to the emergency department for left leg pain present over the last 2 days. No known injury or trauma. Reports the pain starts in the left low back/hip and radiates down the leg. Worse with movement and relieved with rest. She has been taking [id number] medication with little relief. Denies decreased range of motion or numbness. Related Data Allergies Allergy/AdvReac Type Severity Reaction Status Date / Time No Known Allergies Allergy Unknown Verified 07/17/21 22:57 Review of Systems Review of Systems: CONSTITUTIONAL: Denies fever SKIN: Denies rash MUSCULOSKELETAL: Reports back pain, joint pain, and myalgia. NEUROLOGIC: Denies numbness, or weakness. All systems reviewed & are unremarkable except as noted in HPI and below PMFSH Past Medical History Medical History Endometriosis Surgical History Surgical History No significant past surgical history Social History Social History Smoking status: Current some day smoker Substance use: never Gender identity (if verbalized by the patient): Female Sexual Orientation (if Verbalized by the Patient): Straight or Heterosexual Spiritual care concerns: No Exam Narrative: GENERAL: Well-appearing, well-nourished, and in no acute distress. HEAD: Normocephalic, atraumatic. EYES: EOMI. CHEST: Clear to auscultation. No respiratory distress. No wheezes rales or rhonchi HEART: Regular rate and rhythm. No murmur heard. Normal peripheral pulses. EXTREMITIES: Normal range of motion. No edema or erythema. Normal DP pulses. Strength equal in bilateral lower extremities (5/5). Normal patellar reflexes bilaterally SKIN: Warm, dry, no rash. NEURO: No focal deficits. Alert and oriented x3. PSYCH: Normal mood and affect Course Vital Signs Vital signs: Vital Signs Temperature 97.5 F L 07/17/21 22:57 Pulse Rate 95 07/17/21 22:57 Respiratory Rate 16 07/17/21 22:57 Blood Pressure 107/61 07/17/21 22:57 Pulse Oximetry 100 07/17/21 22:57 Temperature 97.5 F L 07/17/21 22:57 Pulse Rate 72 07/18/21 01:46 Respiratory Rate 15 07/18/21 01:46 Blood Pressure 104/53 L 07/18/21 01:46 Pulse Oximetry 100 07/18/21 01:46 MDM - Extremity Injury (Lower) MDM Narrative Medical decision making narrative: Patient presents to the emergency department for left-sided hip/low back pain radiating down the left leg. No recent injury or trauma. Patient is neurovascularly intact. Lumbar spine x-rays without acute osseous abnormalities. Patient was updated on case findings. Instructed to rest, ice and take qqam-[id number] pain medication as needed. Muscle relaxer as needed for pain. She is to follow-up with her primary care doctor. She was given warnings to return to the ER Imaging Data Radiologist's impression: Lumbar spine x-ray STATRAD: No acute abnormality. Critical Care Time Critical Care Time Critical Care Time: No Discharge Plan Discharge Clinical Impression: Low back pain Qualifiers: Chronicity: acute Back pain laterality: left Sciatica presence: with sciatica Sciatica laterality: sciatica of left side Qualified Code(s): M54.42 - Lumbago with sciatica, left side Patient Disposition: Home, Self-Care Condition: Stable Instructions: Acute Low Back Pain (ED) Additional Instructions: Return to the ER if you experience fever, weakness, numbness, bowel/bladder incontinence, or any other symptoms that are concerning to you Rest, use ice/heat, take anti-inflammatories (Aleve, Ibuprofen,
[2021-07-18] MEDS: KETOROLAC (*BKC) 60 MG/2 ML VIAL IM (02:00)
[2021-07-18] MEDS: ACETAMINOPHEN 500 MG TABLET 1000 MG PO (02:00)
== END 2021-07-18 03:34 | disposition home or self-care (01) ==
PROVIDERS: Emergency Provider Emergency Medicine
DX: M54.42 Lumbago with sciatica, left side (principal); N80.9 Endometriosis, unspecified; F17.200 Nicotine dependence, unspecified, uncomplicated
CPT/HCPCS: 72100; 96372; 99283; A9270; J1885

== ENCOUNTER 2022-02-09 12:58 | Emergency (ER) | payer OTHER, SELFPAY ==
[2022-02-09 13:23] VITALS: BP 102/76; PULSE 102; RESP 16; TEMP 36.9; O2SAT 98
[2022-02-09 14:15] LABS: Influenza A QL RT-PCR Positive (Negative); Influenza B QL RT-PCR Negative (Negative); SARS-CoV-2 RNA PCR Negative
--- NOTE | 2022-02-09 15:37 | ED.URI ---
HPI - URI/Sore Throat General Chief Complaint: Upper Respiratory Infection Stated Complaint: body aches Time Seen by Provider: 02/09/22 15:11 History of Present Illness HPI Narrative: 31-year-old female presenting with flulike symptoms that started last night, her daughter is also sick at home. She is also concerned because she has been having some dysuria and she thinks she has a UTI. Related Data Allergies Allergy/AdvReac Type Severity Reaction Status Date / Time No Known Allergies Allergy Unknown Verified 02/09/22 13:24 Review of Systems Review of Systems: CONST: Fever HEENT: sore throat C/V: No chest pain RESP: cough GI: No abdominal pain : dysuria. M/S: Body aches. SKIN: No rash. NEURO: [place] PSYCH: [No depression] [facility] Past Medical History Medical History Endometriosis Surgical History Surgical History No significant past surgical history Social History Social History Smoking status: Current some day smoker Substance use: never Gender identity (if verbalized by the patient): Female Sexual Orientation (if Verbalized by the Patient): Straight or Heterosexual Spiritual care concerns: No Exam Narrative: EXAMINATION OF ORGAN SYSTEMS/BODY AREAS: Constitutional: Vital signs per nursing GENERAL: Appears quite tired and uncomfortable HEAD: Normal with no signs of head trauma. EYES: EOMI, conjunctiva normal ENT: Rhinorrhea LUNGS: Nonlabored breathing. HEART: Tachycardic ABD: [Soft], [nontender to palpation] EXT: Normal range of motion SKIN: [No rashes or lesions.] NEURO: [Alert and oriented x 3. No gross focal sensory or strength deficits.] PSYCH: Normal affect Course Vital Signs Vital signs: Vital Signs Temperature 98.4 F 02/09/22 13:23 Pulse Rate 102 H 02/09/22 13:23 Respiratory Rate 16 02/09/22 13:23 Blood Pressure 102/76 02/09/22 13:23 Pulse Oximetry 98 02/09/22 13:23 Temperature 98.4 F 02/09/22 13:23 Pulse Rate 76 02/09/22 16:02 Respiratory Rate 18 02/09/22 16:02 Blood Pressure 112/70 02/09/22 16:02 Pulse Oximetry 99 02/09/22 16:02 Oxygen Delivery Room Air 02/09/22 15:42 MDM - URI/Sore Throat MDM Narrative Medical decision making narrative: ED COURSE AND MEDICAL DECISION MAKING: This 31-year-old female patient presents with symptoms most suggestive of viral upper respiratory tract infection. Lungs are clear bilaterally without any respiratory distress or accessory muscle use. Patient is treated symptomatically with Toradol, Tylenol. She also like to be treated for UTI, I did asked that she could provide a urine sample and she did not want to be tested for UTI but she did just want antibiotics. Given her description of dysuria without any flank pain I do feel it is reasonable to just start her on Macrobid at this time. She is Flu +. On reevaluation, she is improved and discharged home in stable condition with expectant management. Return precautions were provided. Procedures: Pulse oximetry interpretation - not hypoxic. Review of medical records. DISPOSITION: Discharged home in stable condition. Lab Data Labs: Lab Results 02/09/22 Range/Units 13:28 Influenza A (RT-PCR) Positive (Negative) Influenza B (RT-PCR) Negative (Negative) SARS-CoV-2 RNA (RT-PCR) Negative Discharge Plan Discharge Clinical Impression: Flu, UTI (urinary tract infection) Patient Disposition: Home, Self-Care Condition: Stable Additional Instructions: Please follow up with your doctor in the next 2 days; you can always return if you feel worse. Take the naproxen twice a day and tylenol every 6 hours as needed for your symptoms. Prescriptions: New nitrofurantoin monohyd/m-cryst [Macrobid] 100 mg capsule 100 mg PO Q12H 7 Days Qty: 14 0RF Rx Instructions: must administer
[2022-02-09 15:42] VITALS: O2SAT 98
[2022-02-09] MEDS: ACETAMINOPHEN 500 MG TABLET 1000 MG PO (15:50)
[2022-02-09] MEDS: KETOROLAC 30 MG/ML VIAL (*BKC) IM (15:50)
[2022-02-09 16:02] VITALS: BP 112/70; PULSE 76; RESP 18; O2SAT 99
== END 2022-02-09 16:03 | disposition home or self-care (01) ==
PROVIDERS: Emergency Provider Emergency Medicine
DX: J10.1 Influenza due to other identified influenza virus with other respiratory manifestations (principal); N39.0 Urinary tract infection, site not specified; Z20.822 Contact with and (suspected) exposure to COVID-19
CPT/HCPCS: 87502; 96372; 99283; A9270; J1885; U0003; U0005

== ENCOUNTER 2022-09-03 08:00 | Outpatient (RCR) | payer OTHER, SELFPAY ==
--- NOTE | 2022-06-29 08:52 | PTOPEVAL1 ---
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; lifting and walking all shift--stock and carry supplies; went to chiropractor and was not helping, kind of made it worse sometimes; stopped going; had xrays at his office; active and have 4 children: 2-10 yr old; pain is making me tired and weak, starting to get in my head and get me down; Reported Pain Level Pain Score Self Report Additional Pain Score Comments pain range of 5-8/10 in low back, into L leg to L ankle--intermittent, sometimes R front of hip; increase pain with working, lie on L side, standing/walking, lifting; decrease pain: sleep with pillow between knees, ice used at start of pain- heat made pain worse; sometimes pain wakens her from sleeping; when took off work for 2 months - back was better; is not taking any pain meds; went to hospital due to pain, steroids not help; starting to have some neck & shoulder pain; Assessment PT Clinical Summary Eusebia has the diagnosis of low back pain, radicular into L LE intermittent to ankle. She reports gradual pain increase, but is some better, but limiting her work and home activity. Oswestry self assessment functional score of 52% limitation in activity level. With the evaluation: she has poor standing position of her thoracic and lumbar spine, with tightness over R and L hamstring; pain increase with standing trunk flexion > extension, rotation R & L, supine R and L hip flexion and IR motions; tightness over R and L hamstrings. Skilled PT services are indicated for modalities to decrease pain and spasms, therapeutic exercises to stretch and strengthen trunk and hips, with education for home exercises, body mechanics and posture. Plan of Care Interventions Electrical Stimulation,Hot Pack/Cold Pack,Manual Therapy,Mechanical Traction,Neuro Re-education, Patient/Caregiver Education,Therapeutic Activities, Therapeutic Exercise,Ultrasound,Other Other Intervention
--- NOTE | 2022-07-08 11:36 | PCPTNOTE ---
pt did not show for today's appt, called her and she apologized, had to work. Reminded her of the next appt, tomorrow AM, she stated she would be here for it.
--- NOTE | 2022-07-20 08:43 | PCPTNOTE ---
Patient did not show up for scheduled appointment this date, left voicemail about next visit July 23 at 8 AM
--- NOTE | 2022-07-27 09:48 | PCPTNOTE ---
Patient called & cancelled scheduled appointment this date due to sick kids.
--- NOTE | 2022-08-03 08:38 | PTOPPROG ---
Assessment and note entered by Huma Maciel, PT Evaluation Information Assessment Status Progress Diagnosis low back pain Onset about one year Subjective Information Eusebia reports: feel like therapy is helping--she is doing better and wants to continue therapy pain range in the past week: 0-7/10; L LE radicular intermittent into L anterior hernandez; increase--unable to determine pattern--just comes on; decrease pain by sit, rest, stretch; does not take any pain meds; Assessment PT Clinical Summary Eusebia has received 7 PT sessions. Compared to the initial evaluation: she has improved with: pain rating at low from 5 to 0/10 and highest rating from 8 to 7/10; Oswestry self assessment score from 52 to 32% limitation in activity level; hamstring flexibility bilateral; trunk strength and stability; education for home exercises, body mechanics. She continues to have radicular pain into L mid hernandez and pain with supine R and L hip motions. The goals were partially met. Continue PT treatment for further reduction in pain and increased flexibility and strength, with progression of HEP. Plan of Care Interventions Electrical Stimulation,Manual Therapy,Patient/ Caregiver Education,Therapeutic Activities, Therapeutic Exercise,Ultrasound,Other Other Interventions taping PT Services Indicated Yes Treatment Frequency and 2x/wk for 4 weeks Duration These treatments will address the objective and functional deficits as defined above. The patient will be advanced safely and appropriately in order for the patient to progress towards his/her prior level of function. Additional exercises will be introduced and as well as a comprehensive home exercise program upon discharge, if needed, ?to ensure carryover of functional gains achieved in the clinic. This treatment plan has been reviewed and agreement upon by the patient.
--- NOTE | 2022-08-24 08:20 | PCPTNOTE ---
Patient did not show up for scheduled appointment this date. Called and had to leave a message.
--- NOTE | 2022-09-03 08:30 | PTOPDC ---
Assessment and note entered by Huma Maciel, PT Evaluation Information Assessment Status Discharge Diagnosis low back pain Onset about one year Subjective Information Eusebia reports: back is better; have been doing her exercises; has been more careful at work and trying not to lift as much; agree to discharge therapy. Reported Pain Level Pain Score Self Report Additional Pain Score Comments pain range in the past week, 0-4/10, in low back and L lateral hip, not anything into her L leg; increase pain with lifting and increased activity level; decreased pain with rest, stretching; not taking any pain meds; Assessment PT Clinical Summary Eusebia has received 12 PT sessions. Compared to the last reevaluation: pain rating at the high rating from 7 to 4/10; radicular pain is less into the L LE--was to hernandez, now to lateral hip; Oswestry self assessment from 32% to 20% limitation; improved standing posture-- no forward rotation of R side; strength of trunk and hips have improved; increase flexibility of bilateral hamstrings; education is completed for HEP and posture. The goals were achieved; Discharge from PT services. She is to continue with HEP and monitor her posture. Plan of Care PT Services Indicated No
== END 2022-09-03 09:44 | disposition home or self-care (01) ==
LOC: ANHPT 08:00
PROVIDERS: Visit Provider Advanced Practice Midwife
DX: M54.50 Low back pain, unspecified (principal)
CPT/HCPCS: 97014; 97110; 97140; 97161; 97530; 99199; G0283

== ENCOUNTER 2023-04-13 09:03 | Outpatient (CLI) | payer OTHER, SELFPAY ==
--- NOTE | ~2023-04-13 | US_ITS ---
US abdomen complete EXAMINATION: US Abdomen Complete INDICATION: Abdomen pain PROCEDURE: Realtime High Resolution abdomen ultrasound. COMPARISON: CT dated 11/02/2016 FINDINGS: Gallbladder within normal limits. No gallstones, pericholecystic fluid, gallbladder wall t hickening or biliary dilatation. Common bile duct measures 3 mm. Liver echotexture within normal limits without focal mass. Pancreas within normal limits. Pancreati c tail is obscured by bowel gas. Spleen is unremarkeable. Renal echotexture is within normal limits bilaterally without hydronephrosis, contour deforming mass or renal stone. Right kidney measures 10 c m. Left kidney measures 11.5 cm. Visualized aspects of the aorta and IVC are within normal limits. Portal vein is patent. No sonograph ic Ortega's sign indicated by the technologist. IMPRESSION: 1: Normal abdominal ultrasound. Reviewed, dictated and finalized at [facility] L. [employer]
== END 2023-04-13 09:04 | disposition home or self-care (01) ==
LOC: ANHIMG 09:09
PROVIDERS: Visit Provider Advanced Practice Midwife
DX: R10.9 Unspecified abdominal pain (principal)
CPT/HCPCS: 76700